=== PATIENT | female | born 1950 | race Caucasian/White ===

== ENCOUNTER 2016-12-20 22:01 | Emergency (ER) | payer MEDICARE, OTHER ==
--- NOTE | ~2016-12-20 | EKG ---
PATIENT: MINI CHAMBERS UNIT #: [id number] Ventricular Rate: 78 BPM Atrial Rate: 78 BPM P-R Interval: 142 ms QRS Duration: 74 ms Q-T Interval: 398 ms QTC Calculation(Bezet): 453 ms P [place]: 47 degrees Calculated R [place]: -9 degrees Calculated T [place]: 27 degrees Diagnosis Line: Normal sinus rhythm Diagnosis Line: Cannot rule out Anterior infarct , age Diagnosis Line: undetermined Diagnosis Line: Abnormal ECG Diagnosis Line: When compared with ECG of 15-AUG-2015 20:26, Diagnosis Line: No significant change was found Diagnosis Line: Confirmed by RADHA POLLOCK MD ([id number]) on Diagnosis Line: 12/23/2016 12:02:22 AM INTERPRETING MD: PHILL MIR
[2016-12-20 20:42] LABS: BASOPHIL# 0.1 X10e3 (0-0.3); BASOPHIL% 0.6 % (0-2.5); DIFF IND NO; EOSINOPHIL# 0.1 X10e3 (0-0.7); HEMATOCRIT 34.3 % (35.0-45.0); HEMOGLOBIN 11.1 gm/dL (12.0-16.0); LYMPHOCYTE# 1.2 X10e3 (1.0-3.5); LYMPHOCYTE% 11.4 % (17.0-45.0); MEAN CELL VOLUME 81.9 FL (83-96); MEAN CORPUSCULAR HEMOGLOBIN 26.5 PG (28-34); MEAN CORPUSCULAR HGB CONC 32.4 g/dL (30-36); MEAN PLATELET VOLUME 8.3 FL (6.5-11.5); MONOCYTE# 0.6 X10e3 (0-1.0); MONOCYTE% 5.4 % (3.0-12.0); NEUTROPHIL# 8.6 X10e3 (1.5-7.1); NEUTROPHIL% 81.6 % (40-75); PLATELET COUNT 327 X10e3 (140-420); RED BLOOD COUNT 4.19 X10e (3.90-5.30); WHITE BLOOD COUNT 10.6 X10e3 (4.0-10.5)
[2016-12-20 20:50] LABS: URINE SOURCE CLEAN CATCH
[2016-12-20 20:55] LABS: URINE APPEARANCE CLEAR; URINE BILIRUBIN NEG (NEG); URINE BLOOD NEG (NEG); URINE COLOR YELLOW; URINE GLUCOSE 100 MG/DL (NEG); URINE KETONE NEG (NEG); URINE LEUKOCYTE ESTERASE NEG (NEG); URINE NITRATE NEG (NEG); URINE PROTEIN NEG (NEG); URINE SPECIFIC GRAVITY 1.024 (1.003-1.035); URINE UROBILINOGEN 0.2 MG/DL (NEG)
[2016-12-20 21:02] LABS: ALBUMIN SERUM 4.1 g/dL (3.5-5.0); ALKALINE PHOSPHATASE 97 U/L (32-92); ALT (SGPT) 12 U/L (10-40); AST (SGOT) 17 U/L (10-42); BILIRUBIN,TOTAL 0.2 mg/dL (0.2-2.0); BLOOD UREA NITROGEN 21 mg/dL (9-23); CALCIUM SERUM 8.1 mg/dL (8.4-10.2); CARBON DIOXIDE 24 mmol/L (22-31); CHLORIDE 103 mmol/L (100-111); CREATININE SERUM 0.7 mg/dL (0.6-1.4); GLOM FILT RATE Estimated ABOVE60 mL/min (>60); GLUCOSE FASTING 187 mg/dL (70-110); LIPASE 22 U/L (22-51); POTASSIUM 3.5 mmol/L (3.5-5.1); PROTEIN TOTAL SERUM 7.5 g/dL (6.0-8.3); SODIUM 138 mmol/L (135-145)
[2016-12-20 21:04] LABS: CULTURE INDICATED? NO
[2016-12-20 21:05] LABS: BILIRUBIN, DIRECT <0.1 mg/dL (0.0-0.2); BILIRUBIN,INDIRECT 0.1 mg/dL (0.0-0.9)
[~2016-12-20 22:01] MED LIST: ACID REDUCER20 MG PO; ALBUTEROL17 GM INH; ALLERCLEAR10 MG PO; AMLODIPINE BESYL5 MG PO; ARTIFICIAL TEAR1 DRP OP; ASPIRIN81 M2 PO; ATARAX PO; AZITHROMYCIN250 MG PO; BENTYL10 MG PO; CALCITRIOL0.25 MCG PO; CALCIUM CARBON500 MG PO; CALCIUM CARBON650 M1 PO; CLARITIN10 MG PO; DICYCLOMINE HCL20 MG PO; FLOVENT DI50 MCG/DIS IH; FLUTICASONE PO; LEVAQUIN PO; LEVOTHYROXINE112 MCG PO; LIPITOR PO; LIPITOR20 MG PO; LISINOPRIL20 MG PO; LORATADINE PO; LORTAB 7.5-5001 TAB PO; MUCINEX DM1 TAB.SR . PO; NORVASC PO; OMEPRAZOLE20 M1 PO; PHENERGAN PO; PREDNISONE PO; PREMARIN PO; PREMPRO 0.45/1.1 TAB PO; PRILOSEC PO; PROAIR HFA8.5 GM IH; PYRIDIUM PO; RIOMET500 MG/51 PO; SYNTHROID PO; SYNTHROID125 PO; TRAZODONE PO; TUMS SMOOTHIES300 MG PO; TUMS500 M1 PO; ZITHROMAX PO; ZOFRAN ODT4 MG PO
== END 2016-12-20 23:00 | disposition home or self-care (01) ==
LOC: CED 22:01
PROVIDERS: Student in an Organized Health Care Education/Training Program
DX: H81.10 Benign paroxysmal vertigo, unspecified ear (principal); K21.9 Gastro-esophageal reflux disease without esophagitis; E11.9 Type 2 diabetes mellitus without complications; I10 Essential (primary) hypertension; Z79.899 Other long term (current) drug therapy
CPT/HCPCS: 36415; 80048; 80076; 81003; 82947; 83690; 85025; 93005; 96361; 96374; 99284; J2765

== ENCOUNTER → 2017-03-21 | Outpatient (CLI) | payer MEDICARE, OTHER ==
--- NOTE | ~2017-03-21 | MY29 ---
[facility] A Service of [facility] RADIOLOGY TEXT RESULTS PATIENT: MINI CHAMBERS LOCATION: [facility] : 50 UNIT #: [id number] AGE: [address]: Jt Ballesteros MD SEX: F ORDER DR: [id number] [facility] [address] [place], [place] [address] [id number] O MR#: [id number] Acc #: [id number] NAME: MINI CHAMBERS : 1950 SEX: F STUDY DATE/TIME: 03/21/2017 11:05 UNIT: [facility] ROOM: STUDY DESCRIPTION: MY RENAN SCREENING W/ CAD BILAT Attending Physician: Jt Ballesteros M.D. Ordering Physician: Jt Ballesteros M.D. Primary Care Physician: Jt Ballesteros M.D. MEDICAL IMAGING REPORT This report is preliminary unless electronic signature is present EXAM Digital screening mammogram, 03/21/2017 HISTORY 67-year-old woman positive family history, niece. Annual screening. COMPARISON 02/28/2015, 04/10/2016 FINDINGS Digital imaging of each breast was completed utilizing screening protocol. Review includes FDA-approved CAD device. The breast parenchyma is partially fatty replaced and heterogeneous. Slight parenchymal dominance left breast is stable. I see no interval occurring mass. There are no suspicious microcalcifications and no suspicious architectural deformity. IMPRESSION Negative mammogram. Annual screening recommended. Patients over the age of 40 are entered into a reminder system with target due date for the next mammogram. A result letter will also be sent to the patient. BIRADS: 1 Negative Dictated by... Zheng Henry M.D. THIS IS AN ELECTRONICALLY VERIFIED REPORT Zheng Henry M.D. at 03/21/2017 1:00 PM ANDREE/alda TD: 03/21/2017 12:42 [facility] A Service [facility] RADIOLOGY TEXT RESULTS PATIENT: MINI CHAMBERS LOCATION: [facility] : 50 UNIT #: [id number] AGE: [address]: Jt Ballesteros MD SEX: F ORDER DR: JOB #: [id number] MEDICAL IMAGING REPORT Page 1 of 1 COPY
== END | disposition home or self-care (01) ==
LOC: CWCC 10:39
DX: Z12.31 Encounter for screening mammogram for malignant neoplasm of breast (principal); Z80.3 Family history of malignant neoplasm of breast
CPT/HCPCS: G0202

== ENCOUNTER 2017-06-03 11:54 | Emergency (ER) | payer MEDICARE, OTHER ==
--- NOTE | ~2017-06-03 | CT71 ---
[facility] A Service of [facility] RADIOLOGY TEXT RESULTS PATIENT: MINI CHAMBERS LOCATION: [facility] : 50 UNIT #: [id number] AGE: [address]: Chandler Pressley MD SEX: F ORDER DR: [id number] [facility] [address] [place], [place] [address] [id number] E MR#: [id number] Acc #: [id number] NAME: MINI CHAMBERS : 1950 SEX: F STUDY DATE/TIME: 06/03/2017 13:11 UNIT: [facility] ROOM: STUDY DESCRIPTION: CT Head Wo Contrast Attending Physician: Luis Pressley M.D. Referring Physician: Jt Ballesteros M.D. Ordering Physician: Saud Carballo M.D. Primary Care Physician: Jt Ballesteros M.D. MEDICAL IMAGING REPORT This report is preliminary unless electronic signature is present EXAM CT scan of the head without contrast INDICATIONS Fall Friday06/01/2017 with trauma to head and right frontal headache since then. There is no comparison. TECHNIQUE Axial noncontrast images were obtained from the skull base to the vertex. This CT exam was performed with one or more of the following radiation dose reduction techniques: Automatic exposure control, adjustment of mA and/or kV according to patient size, and iterative reconstruction. FINDINGS Ventricular size and configuration are normal. There is no evidence of acute infarct or hemorrhage. There are no extraaxial fluid collections. No mass lesion or mass effect is seen. There are no skull fractures. IMPRESSION Normal noncontrast head CT. Dictated by... Ciaran Triana M.D. THIS IS AN ELECTRONICALLY VERIFIED REPORT Ciaran Triana M.D. at 06/03/2017 9:55 PM FEL/psc TD: 06/03/2017 20:42 JOB #: [id number] [facility] A Service [facility] RADIOLOGY TEXT RESULTS PATIENT: MINI CHAMBERS LOCATION: [facility] : 50 UNIT #: [id number] AGE: [address]: Chandler Pressley MD SEX: F ORDER DR: MEDICAL IMAGING REPORT Page 1 of 1 COPY
== END 2017-06-03 14:32 | disposition home or self-care (01) ==
LOC: CED 11:54
DX: S00.83XA Contusion of other part of head, initial encounter (principal); W01.10XA Fall on same level from slipping, tripping and stumbling with subsequent striking against unspecified object, initial encounter; Y92.009 Unspecified place in unspecified non-institutional (private) residence as the place of occurrence of the external cause
CPT/HCPCS: 70450; 99284

== ENCOUNTER → 2017-06-25 | Outpatient (CLI) | payer MEDICARE, OTHER | END | disposition home or self-care (01) | LOC: CECH 10:00 | DX: R01.1 Cardiac murmur, unspecified (principal); I51.7 Cardiomegaly; I36.1 Nonrheumatic tricuspid (valve) insufficiency | CPT/HCPCS: 93306 ==